=== PATIENT | female | born 1985 | race Caucasian/White ===

== ENCOUNTER 2021-03-19 11:45 | Emergency (ER) | payer MEDICAID, OTHER ==
[2021-03-19] MEDS ORDERED: Ketorolac 30 MG/ML SDV IVPUSH ONE (13:11)
[2021-03-19] MEDS ORDERED: Sodium Chloride 0.9% 1,000 ML IV ONE (13:11)
--- NOTE | 2021-03-19 13:29 | EDM.PDOC ---
ED HPI GENERAL MEDICAL PROBLEM - General Chief Complaint: Headache Stated Complaint: MIGRAINE Time Seen by Provider: 03/19/21 12:50 Source of Information: Reports: Patient History Limitations: Reports: No Limitations - History of Present Illness INITIAL COMMENTS - FREE TEXT/NARRATIVE: This 35 yo female patient reports to the ED with a migraine headache that has been coming and going over the past week. The patient reports she has taken Tylenol with little to no relief. The patient reports she has had migraine headaches in the past. The patient reports today's symptoms are mostly behind her left eye and upper left face. The patient denies any trauma or acute injury to the area. Duration: Day(s):, Constant Location: Reports: Head Quality: Reports: Ache, Pressure Severity: Moderate Improves with: Reports: None Worsens with: Reports: None Context: Reports: Other Associated Symptoms: Reports: Headaches Treatments HEALTH POLICY NURSE: Reports: Acetaminophen Right Headache Pain Score (Numeric/FACES): 7 - Related Data Allergies Allergy/AdvReac Type Severity Reaction Status Date / Time amoxicillin [From Augmentin] Allergy Severe Hives Verified 03/19/21 13:25 cephalexin [From Keflex] Allergy Severe Airway Verified 03/19/21 13:27 Tightness clavulanic acid Allergy Severe Hives Verified 03/19/21 13:25 [From Augmentin] Penicillins Allergy Severe Airway Verified 03/19/21 13:26 Tightness Social & Family History - Tobacco Use Tobacco Use Status *Q: Current Every Day Tobacco User Years of Tobacco use: 10 Packs/Tins Daily: 0.7 ED ROS GENERAL - Review of Systems Review Of Systems: Comprehensive ROS is negative, except as noted in HPI. - Physical Exam Exam: See Below Exam Limited By: No Limitations General Appearance: Alert, WD/WN, Moderate Distress Eye Exam: Bilateral Eye: EOMI, Normal Inspection, PERRL Ears: Normal External Exam, Normal Canal, Hearing Grossly Normal, Normal TMs Nose: Normal Inspection, Normal Mucosa, No Blood Throat/Mouth: Normal Inspection, Normal Lips, Normal Teeth, Normal Gums, Normal Oropharynx, Normal Voice, No Airway Compromise Head Exam: Atraumatic, Normocephalic Neck: Normal Inspection, Supple, Non-Tender, Full Range of Motion Respiratory/Chest: No Respiratory Distress, Lungs Clear, Normal Breath Sounds, No Accessory Muscle Use, Chest Non-Tender Cardiovascular: Normal Peripheral Pulses, Regular Rate, Rhythm, No Edema, No Gallop, No JVD, No Murmur, No Rub GI/Abdominal: Normal Bowel Sounds, Soft, Non-Tender, No Organomegaly, No Distention, No Abnormal Bruit, No Mass (Female) Exam: Deferred Rectal (Female) Exam: Deferred Neuro Exam (Abbreviated): Alert, Oriented, CN II-XII Intact, Normal Cognition, Normal Gait, Normal Reflexes, No Motor/Sensory Deficits Back Exam: Normal Inspection, Full Range of Motion, NT Extremities: Normal Inspection, Normal Range of Motion, Non-Tender, No Pedal Edema, Normal Capillary Refill Psychiatric: Normal Affect, Normal Mood Skin Exam: Warm, Dry, Intact, Normal Color, No Rash Course - Vital Signs Last Recorded V/S: Last Vital Signs Temp 97.4 F 03/19/21 11:57 Pulse 84 03/19/21 11:57 Resp 18 03/19/21 11:57 BP 127/79 03/19/21 11:57 Pulse Ox 98 03/19/21 11:57 - Orders/Labs/Meds Meds: Medications Discontinued Medications Generic Name Dose Route Start Last Admin Trade Name Tomq PRN Reason Stop Dose Admin Sodium Chloride 1,000 mls @ 999 mls/hr 03/19/21 13:11 03/19/21 13:23 Normal Saline IV 03/19/21 14:11 999 mls/hr .BOLUS ONE Administration Ketorolac Tromethamine 30 mg 03/19/21 13:11 03/19/21 13:23 Ketorolac 30 Mg/Ml Sdv IVPUSH 03/19/21 13:12 30 mg ONETIME ONE Administration Departure - Departure Time of Disposition: 14:22 Disposition: Home, Self-Care 01 Condition: Fair Clinical Impression: Migraine - Discharge Information *PRESCRIPTION DRUG MONITORING PROGRAM REVIEWED*: Not Applicable *COPY OF PRESCRIPTION DRUG MONITORING REPORT IN PATIENT MARGO: Not Applicable Instructions: Migraine Headache, Myix-xs-Exux Forms: ED Department Discharge Care Plan Goals: The patient was advised of the examination results during the visit. The patient was given IV fluids and IV Toradol while in the ED. The patient was encouraged to increase her oral fluid intake over the next 48 hours. The patient may take Tylenol or ibuprofen as directed for temporary symptom relief. If the patient has any additional symptoms or concerns, the patient should either return to the emergency department or visit her primary care facility. Sepsis Event Note (ED) - Focused Exam Vital Signs: Vital Signs Temp Pulse Resp BP Pulse Ox 03/19/21 11:57 97.4 F 84 18 127/79 98
== END 2021-03-19 15:43 | disposition home or self-care (01) ==
LOC: DL.ED 11:45
DX: G43.909 Migraine, unspecified, not intractable, without status migrainosus (principal); Z88.0 Allergy status to penicillin; Z88.1 Allergy status to other antibiotic agents; Z72.0 Tobacco use
CPT/HCPCS: 96374; 99283; J1885; J7030